=== PATIENT | female | born 1975 ===

== ENCOUNTER 2018-06-11 06:14 | Day surgery (SDC) | payer SELFPAY ==
[2018-06-10 10:38] VITALS: BMI 37.0
[2018-06-11] MEDS ORDERED: cefOXitin IV 2 gm in Dextrose 2 GM/50 ML BAG IVPB ONE (07:03)
[2018-06-11] MEDS ORDERED: Bupivacaine 0.5% Inj(30mL) IJ ONE (07:30)
[2018-06-11] MEDS ORDERED: Propofol 10 mg/ml Inj (20 ML) ONE (07:38)
[2018-06-11] MEDS ORDERED: Midazolam 2 MG/2 ML VIAL ONE (07:38)
[2018-06-11] MEDS ORDERED: Rocuronium 10 mg/ml (5 ml) ONE (07:45)
[2018-06-11] MEDS ORDERED: Neostigmine Methylsulfate 3mg/3ml Syringe IV ONE (08:46)
[2018-06-11] MEDS: HYDROmorphone 0.5 mg/0.5 ml ISec IVP PRN ×2 (09:37→09:58)
[2018-06-11 11:30] VITALS: BP 104/52; PULSE 86; RESP 18; TEMP 97.4; O2SAT 97
--- NOTE | 2018-06-12 03:15 | OP ---
PROCEDURE DATE: 06/11/2018 PREOPERATIVE DIAGNOSES: Ovarian cyst, pelvic pain, menorrhagia. POSTOPERATIVE DIAGNOSES: Right hydrosalpinx, menorrhagia. PROCEDURE: Laparoscopy, right salpingectomy, dilation and curettage of the uterus. FINDINGS: The patient is status post bilateral tubal ligation with Falope rings in the right fallopian tubes, two of them; and a large hydrosalpinx 8 x 4 cm which was resected with the help of a LigaSure. Both ovaries are noted to be normal and visualized. The uterus is mildly myomatous. Liver, gallbladder, and appendix are normal. SURGEON: Natalie Norris MD TYPE OF ANESTHESIA: General. IT APPLICATION ADMINISTRATOR: Justin Vaughan MD ESTIMATED BLOOD LOSS: Less than 1 mL. COMPLICATIONS: Nil. DESCRIPTION OF PROCEDURE: After the risks, benefits, and alternatives of the planned procedures, including but not limited to the infection, hemorrhage, deep vein thrombosis, atelectasis, pneumonia, pulmonary embolism, damage to the bladder, damage to the ureter, renal insufficiency, renal failure, wound infection, wound dehiscence, incisional hernia, keloid formation, damage to the large and small intestines, damage to the inferior vena cava and aorta, requiring extensive repair, anesthesia complications, electrolyte imbalance, possibility of , fluid overload, cerebral edema, embolism, and other complications that were discussed, but are not listed above have been explained to the patient and all her questions answered. Informed consent was obtained. The patient was taken to the operating room in a stable condition. Under a suitable level of general anesthesia, she was prepped and draped in a sterile fashion after having been placed in a dorsal lithotomy position. A Greer catheter was inserted. Examination under anesthesia revealed right adnexal fullness. A weighted speculum was inserted into the vagina. The anterior lip of the cervix was grasped using a single tooth tenaculum. An endocervical curettage was performed and scant tissue was obtained. Uterus was sounded to 7 cm. The cervix was dilated with a #18 Hanks dilator. An endometrial curettage was performed. Scant tissue was obtained. A HUMI catheter was inserted into the cervix and insufflated into place. Through a left upper quadrant 5-mm puncture site, a 5 mm trocar and sleeve were inserted. Trocar was removed and replaced by a laparoscope. A pneumoperitoneum of 3 L was created. A 5-mm puncture site was made 3 fingerbreadths above the pubic symphysis through which a 5-mm trocar and sleeve were inserted and a 10-mm puncture site was made in the right iliac fossa through which a 10-mm trocar and sleeve were inserted. The fluid from the right hydrosalpinx was then drained and submitted for pathology. Right fallopian tube was then elevated, and the mesosalpinx was then resected entirely with the help of LigaSure. The right fallopian tube together with two pieces of Falope rings were submitted for pathology. Peritoneal cavity was irrigated using copious amounts of saline. The saline was evacuated. The right lower quadrant sleeve was removed under laparoscopic guidance. The fascia was closed using 0 Prolene suture with the help of closure device. The suprapubic sleeve was then removed under laparoscopic guidance. The abdomen was deflated with carbon dioxide and the left upper quadrant sleeve was removed under laparoscopic guidance. The skin incisions were then closed using 4-0 Monocryl. Estimated blood loss for the procedure was 2 mL. Pad, needle, and instrument counts were correct x2. There were no complications. Natalie Norris MD
== END 2018-06-11 11:24 | disposition home or self-care (01) ==
LOC: C.SDS 06:14
PROVIDERS: ATTEND Obstetrics & Gynecology Reproductive Endocrinology
DX: N70.11 Chronic salpingitis (principal); N92.0 Excessive and frequent menstruation with regular cycle
CPT/HCPCS: 36415; 58120; 58661; 86850; 86900; 88104; 88305; J0694; J1100; J1170; J2001; J2250; J2405; J2704; J2710; J3010

== ENCOUNTER 2019-01-14 13:26 | Outpatient (CLI) | payer SELFPAY | END 2019-01-14 13:27 | disposition home or self-care (01) | LOC: C.LAB 13:26 | DX: R05 Cough (principal); E03.9 Hypothyroidism, unspecified; E78.5 Hyperlipidemia, unspecified; E11.9 Type 2 diabetes mellitus without complications; N39.0 Urinary tract infection, site not specified ==